=== PATIENT | female | born 1985 | race Caucasian/White ===

== ENCOUNTER 2021-08-14 06:55 | Inpatient (IN) | payer MEDICAID ==
[2021-08-14] MEDS ORDERED: Nalbuphine 10 MG/1 ML Vial IVPUSH PRN (07:33)
[2021-08-14] MEDS ORDERED: Sodium Chloride 0.9% 10 ML Syringe FLUSH PRN (07:33)
[2021-08-14] MEDS ORDERED: Lactated Ringers 1,000 ML IV SCH (07:45)
[2021-08-14] MEDS ORDERED: Oxytocin/Lactated Ringers 10 UNIT/1,000 ML BAG IV SCH (07:45)
[2021-08-14] MEDS ORDERED: Ondansetron 4 MG/2 ML SDV IVPUSH PRN (11:57)
[2021-08-14] MEDS ORDERED: ePHEDrine 50 MG/ML SDV IVPUSH PRN (11:57)
[2021-08-14] MEDS ORDERED: fentaNYL 100 MCG/2 ML SDV EPIDUR PRN (11:57)
[2021-08-14] MEDS ORDERED: diphenhydrAMINE 50 MG/ML SDV IVPUSH PRN (11:57)
[2021-08-14] MEDS ORDERED: Bupivacaine/fentaNYL/NS 100 ML Bag EPIDUR SCH (12:00)
--- NOTE | 2021-08-14 12:00 | PCM.PREANE ---
Preanesthetic Assessment - Procedure Proposed Procedure: Epidural - Anesthesia/Transfusion/Family Hx Anesthesia History: Prior Anesthesia Without Reaction Family History of Anesthesia Reaction: No Transfusion History: No Prior Transfusion(s) Intubation History: Unknown - Review of Systems General: No Symptoms Pulmonary: No Symptoms Cardiovascular: No Symptoms, Lightheadedness (positional changes with ) Gastrointestinal: No Symptoms (GERD), Constipation Neurological: No Symptoms Other: Reports: None, Easy Bruising - Physical Assessment NPO Status Date: 08/14/21 NPO Status Time: 11:15 Vital Signs: Last Vital Signs Temp 36.6 C 08/14/21 07:30 Pulse 90 08/14/21 07:30 Resp 16 08/14/21 07:30 BP 120/60 08/14/21 07:30 Pulse Ox 96 08/14/21 07:30 Height: 1.6 m Weight: 83.098 kg ASA Class: 2 Mental Status: Alert & Oriented x3 Airway Class: Mallampati = 2 Dentition: Reports: Normal Dentition, Caries Thyro-Mental Finger Breadths: 3 Mouth Opening Finger Breadths: 3 ROM/Head Extension: Full Lungs: Clear to Auscultation, Normal Respiratory Effort Cardiovascular: Regular Rate, Regular Rhythm, No Murmurs - Lab Values: Laboratory Last Values WBC 7.68 K/mm3 (3.98-10.04) 08/14/21 07:55 RBC 4.07 M/mm3 (3.98-5.22) 08/14/21 07:55 Hgb 12.1 gm/dl (11.2-15.7) 08/14/21 07:55 Hct 37.0 % (34.1-44.9) 08/14/21 07:55 MCV 90.9 fl (79.4-94.8) 08/14/21 07:55 MCH 29.7 pg (25.6-32.2) 08/14/21 07:55 MCHC 32.7 g/dl (32.2-35.5) 08/14/21 07:55 RDW Std Deviation 45.5 fL (36.4-46.3) 08/14/21 07:55 Plt Count 130 K/mm3 (182-369) L 08/14/21 07:55 MPV 10.1 fl (9.4-12.3) 08/14/21 07:55 Neut % (Auto) 77.6 % (34.0-71.1) H 08/14/21 07:55 Lymph % (Auto) 12.5 % (19.3-51.7) L 08/14/21 07:55 [place] % (Auto) 6.3 % (4.7-12.5) 08/14/21 07:55 Eos % (Auto) 0.9 (0.7-5.8) 08/14/21 07:55 Baso % (Auto) 0.1 % (0.1-1.2) 08/14/21 07:55 Neut # (Auto) 5.96 K/mm3 (1.56-6.13) 08/14/21 07:55 Lymph # (Auto) 0.96 K/mm3 (1.18-3.74) L 08/14/21 07:55 [place] # (Auto) 0.48 K/mm3 (0.24-0.36) H 08/14/21 07:55 Eos # (Auto) 0.07 K/mm3 (0.04-0.36) 08/14/21 07:55 Baso # (Auto) 0.01 K/mm3 (0.01-0.08) 08/14/21 07:55 SARS-CoV-2 RNA (CHARLEEN) Negative (NEGATIVE) 08/14/21 07:45 Blood Type A NEGATIVE 08/14/21 07:55 Gel Antibody Screen Positive 08/14/21 07:55 Above labs reviewed and noted and within acceptable ranges to proceed with epidural if desired. - Allergies Allergies/Adverse Reactions: Allergies Allergy/AdvReac Type Severity Reaction Status Date / Time No Known Allergies Allergy Verified 08/14/21 07:32 - Anesthesia Plan Pre-Op Medication Ordered: None - Acknowledgements Anesthesia Type Planned: Spinal, Epidural Pt an Appropriate Candidate for the Planned Anesthesia: Yes Alternatives and Risks of Anesthesia Discussed w Pt/Guardian: Yes Pt/Guardian Understands and Agrees with Anesthesia Plan: Yes PreAnesthesia Questionnaire HEENT History: Reports: Impaired Vision Cardiovascular History: Reports: None Respiratory History: Reports: None Gastrointestinal History: Reports: None Other Gastrointestinal History: Gall stones Genitourinary History: Reports: None 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 demise 21 weeks 11/2019 Musculoskeletal History: Reports: None Neurological History: Reports: None Psychiatric History: Reports: None Endocrine/Metabolic History: Reports: None Hematologic History: Reports: Anemia Immunologic History: Reports: None Oncologic (Cancer) History: Reports: None Dermatologic History: Reports: None - Infectious Disease History Infectious Disease History: Reports: Chicken Pox - Past Surgical History Head Surgeries/Procedures: Reports: None HEENT Surgical History: Reports: None GI Surgical History: Reports: None - SUBSTANCE USE Tobacco Use Status *Q: Never Tobacco User Tobacco Use Within Last Twelve Months: No Second Hand Smoke Exposure: No Recreational Drug Use History: No - HOME MEDS Home Medications: Home Meds Lysine 1,000 mg PO DAILY 11/04/19 [History] Pnv No.95/Ferrous Fum/Folic AC [ Vitamin Tablet] 1 tab PO DAILY 08/14/21 [History] - CURRENT (IN HOUSE) MEDS Current Meds: Current Medications Oxytocin/Lactated Ringer's (Pitocin In Lr 10 Units/1,000 Ml) 10 unit in 1,000 mls @ 12 mls/hr IV TITRATE CHANI; Protocol Last Titration: 08/14/21 11:30 Dose: 12 munits/min, 72 mls/hr Documented by: Lactated Ringer's (Ringers, Lactated) 1,000 mls @ 100 mls/hr IV ASDIRECTED CHANI Last Admin: 08/14/21 08:01 Dose: 100 mls/hr Documented by: Nalbuphine HCl (Nalbuphine 10 Mg/1 Ml Vial) 10 mg IVPUSH Q2H PRN PRN Reason: Pain Sodium Chloride (Sodium Chloride 0.9% 10 Ml Syringe) 10 ml FLUSH ASDIRECTED PRN PRN Reason: Keep Vein Open
[2021-08-14] MEDS ORDERED: Lidocaine 1% 50 ML MDV ONE (13:11)
--- NOTE | 2021-08-14 13:37 | PCM.LDHP ---
L&D History of Present Illness - General Date of Service: 08/14/21 Admit Problem/Dx: Patient Status Order with Admit Dx/Problem 08/14/21 07:34 Patient Status [ADT] Routine Admission Diagnosis/Problem Admission Diagnosis/Problem - History of Present Illness Introduction:: 36 year old at 39w2 here for induction of labor. PNC with myself complicated only by ama - Related Data Allergies/Adverse Reactions: Allergies Allergy/AdvReac Type Severity Reaction Status Date / Time No Known Allergies Allergy Verified 08/14/21 07:32 Home Medications: Home Meds Lysine 1,000 mg PO DAILY 11/04/19 [History] Pnv No.95/Ferrous Fum/Folic AC [ Vitamin Tablet] 1 tab PO DAILY 08/14/21 [History] Past Medical History HEENT History: Reports: Impaired Vision Cardiovascular History: Reports: None Respiratory History: Reports: None Gastrointestinal History: Reports: None Other Gastrointestinal History: Gall stones Genitourinary History: Reports: None 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 demise 21 weeks 11/2019 Musculoskeletal History: Reports: None Neurological History: Reports: None Psychiatric History: Reports: None Endocrine/Metabolic History: Reports: None Hematologic History: Reports: Anemia Immunologic History: Reports: None Oncologic (Cancer) History: Reports: None Dermatologic History: Reports: None - Infectious Disease History Infectious Disease History: Reports: Chicken Pox - Past Surgical History Head Surgeries/Procedures: Reports: None HEENT Surgical History: Reports: None GI Surgical History: Reports: None Social & Family History - Family History Family Medical History: Unobtainable - Tobacco Use Tobacco Use Status *Q: Never Tobacco User Second Hand Smoke Exposure: No - Caffeine Use Caffeine Use: Reports: None - Recreational Drug Use Recreational Drug Use: No H&P Review of Systems - Review of Systems: Review Of Systems: See Below General: Reports: No Symptoms HEENT: Reports: No Symptoms Pulmonary: Reports: No Symptoms Cardiovascular: Reports: No Symptoms Gastrointestinal: Reports: No Symptoms Genitourinary: Reports: No Symptoms Musculoskeletal: Reports: No Symptoms Skin: Reports: No Symptoms Psychiatric: Reports: No Symptoms Neurological: Reports: No Symptoms Hematologic/Lymphatic: Reports: No Symptoms Immunologic: Reports: No Symptoms L&D Exam - Exam Exam: See Below - Vital Signs Vital Signs: Last Vital Signs Temp 36.6 C 08/14/21 07:30 Pulse 90 08/14/21 07:30 Resp 16 08/14/21 07:30 BP 120/60 08/14/21 07:30 Pulse Ox 96 08/14/21 07:30 Weight: 83.098 kg - OB Specific Contraction Intensity: Moderate to Strong Movement: Active Heart Tones: Present Heart Rate (FHR) Variability: Moderate (6-25 bpm) Presentation: Vertex - Lira Score Lira Score Cervix Position: Midposition Lira Score Consistency: Soft Lira Score Effacement: 51-70% Lira Score Dilation: 3-4 cm Lira Score Infant's Station: -2 Lira Score Total: 8 - Exam General: Alert, Oriented HEENT: PERRLA, Conjunctiva Clear, EACs Clear, EOMI, Hearing Intact, Mucosa Moist & [place], Nares Patent, Normal Nasal Septum, Posterior Pharynx Clear, TMs Clear Neck: Supple, Trachea Midline Lungs: Clear to Auscultation, Normal Respiratory Effort Cardiovascular: Regular Rate, Regular Rhythm GI/Abdominal Exam: Normal Bowel Sounds, Soft, Non-Tender, No Organomegaly, No Distention, No Abnormal Bruit, No Mass Back Exam: Normal Inspection, Full Range of Motion Extremities: Normal Inspection, Normal Range of Motion, Non-Tender, No Pedal Edema, Normal Capillary Refill Skin: Warm, Dry, Intact Neurological: Cranial Nerves Intact Psychiatric: Alert, Normal Affect - Patient Data Lab Results Last 24 hrs: Laboratory Results - last 24 hr 08/14/21 08/14/21 08/14/21 Range/Units 07:45 07:55 07:55 WBC 7.68 (3.98-10.04) K/mm3 RBC 4.07 (3.98-5.22) M/mm3 Hgb 12.1 (11.2-15.7) gm/dl Hct 37.0 (34.1-44.9) % MCV 90.9 (79.4-94.8) fl MCH 29.7 (25.6-32.2) pg MCHC 32.7 (32.2-35.5) g/dl RDW Std Deviation 45.5 (36.4-46.3) fL Plt Count 130 L (182-369) K/mm3 MPV 10.1 (9.4-12.3) fl Neut % (Auto) 77.6 H (34.0-71.1) % Lymph % (Auto) 12.5 L (19.3-51.7) % [place] % (Auto) 6.3 (4.7-12.5) % Eos % (Auto) 0.9 (0.7-5.8) Baso % (Auto) 0.1 (0.1-1.2) % Neut # (Auto) 5.96 (1.56-6.13) K/mm3 Lymph # (Auto) 0.96 L (1.18-3.74) K/mm3 [place] # (Auto) 0.48 H (0.24-0.36) K/mm3 Eos # (Auto) 0.07 (0.04-0.36) K/mm3 Baso # (Auto) 0.01 (0.01-0.08) K/mm3 SARS-CoV-2 RNA (CHARLEEN) Negative (NEGATIVE) Blood Type A NEGATIVE Gel Antibody Screen Positive Result Diagrams: 08/14/21 07:55 Problem List Initiated/Reviewed/Updated: Yes Orders Last 24hrs: Active Orders 24 hr Category Date Time Status Patient Status Manage Transfer [TRANSFER] Routine ADT 08/14/21 13:32 Ordered Patient Status [ADT] Routine ADT 08/14/21 07:34 Active Activity as Tolerated [RC] PFP Care 08/14/21 07:34 Active Communication Order [RC] ASDIRECTED Care 08/14/21 07:34 Active Heart Tones [RC] ASDIRECTED Care 08/14/21 07:34 Active Non Stress Test [RC] PER UNIT ROUTINE Care 08/14/21 07:34 Active Notify Provider [RC] ASDIRECTED Care 08/14/21 11:57 Active Notify Provider [RC] PFP Care 08/14/21 07:34 Active Notify Provider [RC] PRN Care 08/14/21 07:34 Active Oxygen Therapy [RC] ASDIRECTED Care 08/14/21 11:57 Active Peripheral IV Care [RC] . DIRECTED Care 08/14/21 07:34 Active Pulse Oximetry [RC] ASDIRECTED Care 08/14/21 11:57 Active Vital Signs [RC] 03,09,15,21 Care 08/14/21 07:34 Active Regular Diet [DIET] Diet 08/14/21 Breakfast Active ANTIBODY IDENTIFICATION [BBK] Stat Lab 08/14/21 07:55 Results RAPID PLASMA REAGIN,RPR [CHEM] Routine Lab 08/14/21 07:55 Received TYPE AND SCREEN [BBK] Stat Lab 08/14/21 07:55 Results Bupivacaine/fentaNYL/NS [fentaNYL/Bupivacaine/NS 2 MCG- Med 08/14/21 12:00 Active 0.125% 100 ML] 100 ml EPIDUR ASDIRECTED Lactated Ringers [Ringers, Lactated] 1,000 ml Med 08/14/21 07:45 Active IV ASDIRECTED Nalbuphine [Nubain] Med 08/14/21 07:33 Active 10 mg IVPUSH Q2H PRN Ondansetron [Zofran] Med 08/14/21 11:57 Active 4 mg IVPUSH ONETIME PRN Oxytocin/Lactated Ringers [Pitocin in LR 10 Units/1,000 Med 08/14/21 07:45 Active ML] 10 unit in 1,000 ml IV TITRATE Phenylephrine HCl In 0.9% NaCl [Phenylephrine 1 MG/10 Med 08/14/21 11:57 Active ML-NS] 0.1 mg IVPUSH Q10M PRN Sodium Chloride 0.9% [Saline Flush] Med 08/14/21 07:33 Active 10 ml FLUSH ASDIRECTED PRN diphenhydrAMINE [Benadryl] Med 08/14/21 11:57 Active 25 mg IVPUSH Q6H PRN ePHEDrine [ePHEDrine sulfate] Med 08/14/21 11:57 Active 5 mg IVPUSH ASDIRECTED PRN fentaNYL [Sublimaze] Med 08/14/21 11:57 Active 100 mcg EPIDUR Q3H PRN Electronic Heart Tones Ext w TOCO [WOMSER] Oth 08/14/21 07:34 Ordered Routine Electronic Heart Tones Internal [WOMSER] Per Unit Oth 08/14/21 07:34 Ordered Routine Peripheral IV Insertion Adult [OM.PC] Routine Oth 08/14/21 07:34 Ordered Resuscitation Status Routine Resus Stat 08/14/21 07:33 Ordered Medication Orders Diphenhydramine HCl (Diphenhydramine 50 Mg/Ml Sdv) 25 mg IVPUSH Q6H PRN PRN Reason: pruritis Ephedrine Sulfate (Ephedrine 50 Mg/Ml Sdv) 5 mg IVPUSH ASDIRECTED PRN PRN Reason: Hypotension Fentanyl (Fentanyl 100 Mcg/2 Ml Sdv) 100 mcg EPIDUR Q3H PRN PRN Reason: Pain Fentanyl/Bupivacaine HCl (Bupivacaine/Fentanyl/Ns 100 Ml Bag) 100 ml EPIDUR ASDIRECTED CHANI Oxytocin/Lactated Ringer's (Pitocin In Lr 10 Units/1,000 Ml) 10 unit in 1,000 mls @ 12 mls/hr IV TITRATE CHANI; Protocol Last Titration: 08/14/21 11:30 Dose: 12 munits/min, 72 mls/hr Documented by: Titration: 08/14/21 10:00 Dose: 10 munits/min, 60 mls/hr Documented by: Titration: 08/14/21 09:30 Dose: 8 munits/min, 48 mls/hr Documented by: Titration: 08/14/21 09:03 Dose: 6 munits/min, 36 mls/hr Documented by: Titration: 08/14/21 08:32 Dose: 4 munits/min, 24 mls/hr Documented by: Admin: 08/14/21 08:00 Dose: 2 munits/min, 12 mls/hr Documented by: DEVIKA Lactated Ringer's (Ringers, Lactated) 1,000 mls @ 100 mls/hr IV ASDIRECTED [facility] Last Admin: 08/14/21 08:01 Dose: 100 mls/hr Documented by: DEVIKA Miscellaneous Medication (Phenylephrine Hcl In 0.9% Nacl 1 Mg/10 Ml Syringe) 0.1 mg IVPUSH Q10M PRN PRN Reason: Hypotension Nalbuphine HCl (Nalbuphine 10 Mg/1 Ml Vial) 10 mg IVPUSH Q2H PRN PRN Reason: Pain Ondansetron HCl (Ondansetron 4 Mg/2 Ml Sdv) 4 mg IVPUSH ONETIME PRN PRN Reason: Nausea/Vomiting Sodium Chloride (Sodium Chloride 0.9% 10 Ml Syringe) 10 ml FLUSH ASDIRECTED PRN PRN Reason: Keep Vein Open Assessment/Plan Comment:: 36 year old here for induction. AROM clear fluid. Pitocin.
--- NOTE | 2021-08-14 13:42 | PCM.SN.2 ---
- Free Text/Narrative Note: Stage I - patient presented for IOL. AROM clear fluid. Pitocin. Progressed to complete with overall reassuring heart tones. Stage II - of viable male, weight pending, 8/9 apgars at 1309. Head delivered in controlled manner over intact perineum. Body and shoulders atraumatically. To maternal abdomen. Positive cry. Cord clamped and cut at 3 minutes of life. Stage III - of intact placenta. 3vc. 2nd degree laceration repaired with 3-0 vicryl. EBL 300
[2021-08-14] MEDS ORDERED: Witch Hazel Medicated Pads 40/Jar TOP PRN (13:53)
[2021-08-14] MEDS ORDERED: Benzocaine/Menthol 20%-0.5% Spray 78 GM Cannister TOP PRN (13:53)
[2021-08-14] MEDS: Ibuprofen 600 MG Tab PO PRN ×2 (15:08→22:27)
[2021-08-15] MEDS: Ibuprofen 600 MG Tab PO PRN (09:34)
--- NOTE | 2021-08-15 10:02 | PCM.DCSUM1 ---
Discharge Summary - Hospital Course Free Text/Narrative:: Nhung is a 36-year-old 4 now para 4-0-0-4 white female who was admitted on 08/14/2021 for induction of labor. Please see H&P for details. Stage I - patient presented for IOL. AROM clear fluid. Pitocin. Progressed to complete with overall reassuring heart tones. Stage II - of viable male, weight pending, 8/9 apgars at 1309. Head delivered in controlled manner over intact perineum. Body and shoulders atraumatically. To maternal abdomen. Positive cry. Cord clamped and cut at 3 minutes of life. Stage III - of intact placenta. 3vc. 2nd degree laceration repaired with 3-0 vicryl. EBL 300 patient has done well. She is nursing without problems. Perineal/vaginal sutures are healing well with no discomfort. Voiding is without problems. She is ambulating well and has minimal lochia. She is desiring discharge home. Diagnosis: Stroke: No - Discharge Data Discharge Date: 08/15/21 Discharge Disposition: Home, Self-Care 01 Condition: Good - Referral to Home Health Primary Care Physician: Makayla Ramirez NP - Discharge Diagnosis/Problem(s) (1) 39 weeks gestation of SNOMED Code(s): 83908608 ICD Code: Z3A.39 - 39 WEEKS GESTATION OF Status: Acute Current Visit: Yes (2) Advanced maternal age (AMA) in SNOMED Code(s): 586359238 ICD Code: [id number] - Status: Acute Current Visit: Yes - Patient Instructions Diet: Regular Diet as Tolerated (Nursing diet with increased calcium calories as recommended.) Activity: As Tolerated (No intercourse or tampons until bleeding resolves) Driving: May Drive Today Showering/Bathing: May Shower (May take a bath) Notify Provider of: Fever, Increased Pain, Swelling and Redness, Nausea and/or Vomiting - Discharge Plan Home Medications: Home Meds Lysine 1,000 mg PO DAILY 11/04/19 [History] Pnv No.95/Ferrous Fum/Folic AC [ Vitamin Tablet] 1 tab PO DAILY 08/14/21 [History] Ibuprofen [Motrin] 600 mg PO Q6H PRN tablet 08/15/21 [Rx] - Discharge Summary/Plan Comment DC Time >30 min.: Yes Total # of Minutes for Discharge Time: 10 Discharge Summary/Plan Comment: Discharge instructions: 1. Discharge home 2. Diet, activity and follow-up discussed with patient. Recommend nursing diet with increased calories and calcium. 3. Precautions given concern increased pain, bleeding, temperature, signs/symptoms of DVT/PE. 4. Medications per home medication was printed, discussed with and given to the patient. 5. Return to clinic-Dr. Zapata at [facility] in 2 weeks. Diagnosis: 1. Advanced maternal age 2. 39-week term -delivered Condition: Good - Patient Data Vitals - Most Recent: Last Vital Signs Temp 36.1 C 08/15/21 03:00 Pulse 68 08/15/21 03:00 Resp 14 08/15/21 03:00 BP 118/87 08/15/21 03:00 Pulse Ox 99 08/15/21 03:00 Weight - Most Recent: 83.098 kg I&O - Last 24 hours: Intake & Output 08/14/21 08/15/21 08/15/21 22:59 06:59 14:59 Intake Total 1502 Balance 1502 Lab Results - Last 24 hrs: Laboratory Results - last 24 hr 08/14/21 08/14/21 08/14/21 Range/Units 07:55 07:55 16:26 RPR Non-reactive (NONREACTIVE) Blood Type A NEGATIVE Gel Antibody Screen Positive Antibody Identification No Antibodies Identified Screen 1 ros/5 flds - neg RhIG Candidate? Yes Rhogam Indicated Yes, baby rh unknown H Med Orders - Current: Current Medications Benzocaine/Menthol (Benzocaine/Menthol 20%-0.5% [place] 78 Gm Cannister) 0 gm TOP ASDIRECTED PRN PRN Reason: Perineal Comfort Measure Last Admin: 08/14/21 15:09 Dose: 1 can Documented by: Ibuprofen (Ibuprofen 600 Mg Tab) 600 mg PO Q6H PRN PRN Reason: Mild pain or fever Last Admin: 08/15/21 09:34 Dose: 600 mg Documented by: Aaron Broussard (Witch Aarti Medicated Pads 40/Jar) 1 pad TOP ASDIRECTED PRN PRN Reason: Perineal Comfort Measure Last Admin: 08/14/21 15:08 Dose: 1 tub Documented by: Discontinued Medications Diphenhydramine HCl (Diphenhydramine 50 Mg/Ml Sdv) 25 mg IVPUSH Q6H PRN PRN Reason: pruritis Ephedrine Sulfate (Ephedrine 50 Mg/Ml Sdv) 5 mg IVPUSH ASDIRECTED PRN PRN Reason: Hypotension Fentanyl (Fentanyl 100 Mcg/2 Ml Sdv) 100 mcg EPIDUR Q3H PRN PRN Reason: Pain Fentanyl/Bupivacaine HCl (Bupivacaine/Fentanyl/Ns 100 Ml Bag) 100 ml EPIDUR ASDIRECTED CHANI Oxytocin/Lactated Ringer's (Pitocin In Lr 10 Units/1,000 Ml) 10 unit in 1,000 mls @ 12 mls/hr IV TITRATE CHANI; Protocol Last Titration: 08/14/21 11:30 Dose: 12 munits/min, 72 mls/hr Documented by: Lactated Ringer's (Ringers, Lactated) 1,000 mls @ 100 mls/hr IV ASDIRECTED CHANI Last Admin: 08/14/21 08:01 Dose: 100 mls/hr Documented by: Lidocaine HCl (Lidocaine 1% 50 Ml Mdv) Confirm Administered Dose 50 ml .ROUTE .[facility] Stop: 08/14/21 13:12 Last Admin: 08/14/21 13:46 Dose: 50 ml Documented by: Miscellaneous Medication (Phenylephrine Hcl In 0.9% Nacl 1 Mg/10 Ml Syringe) 0.1 mg IVPUSH Q10M PRN PRN Reason: Hypotension Nalbuphine HCl (Nalbuphine 10 Mg/1 Ml Vial) 10 mg IVPUSH Q2H PRN PRN Reason: Pain Ondansetron HCl (Ondansetron 4 Mg/2 Ml Sdv) 4 mg IVPUSH ONETIME PRN PRN Reason: Nausea/Vomiting Sodium Chloride (Sodium Chloride 0.9% 10 Ml Syringe) 10 ml FLUSH ASDIRECTED PRN PRN Reason: Keep Vein Open
== END 2021-08-15 16:15 | disposition home or self-care (01) | DRG 807 ==
LOC: JD.OB 06:55 → OBSVTOIN 13:09 → JD.OB 13:09
PROVIDERS: ADMIT Obstetrics & Gynecology; ATTEND Obstetrics & Gynecology
PROC: 10E0XZZ Delivery of Products of Conception, External Approach (ICD-10-PCS; principal; 2021-08-14)
PROC: 0KQM0ZZ Repair Perineum Muscle, Open Approach (ICD-10-PCS; 2021-08-14)
PROC: 10907ZC Drainage of Amniotic Fluid, Therapeutic from Products of Conception, Via Natural or Artificial Opening (ICD-10-PCS; 2021-08-14)
DX: O70.1 Second degree perineal laceration during delivery (principal); Z37.0 Single live birth; Z20.822 Contact with and (suspected) exposure to COVID-19; Z3A.39 39 weeks gestation of pregnancy
CPT/HCPCS: 36415; 36430; 59025; 59409; 85025; 85461; 86592; 86850; 86870; 86900; 86901; A9270-GY; J2001; J2590; J2790; J7120; U0002